=== PATIENT | male | born 1990 | race Caucasian/White ===

== ENCOUNTER 2022-09-22 07:46 | Emergency (ER) | payer OTHER ==
[~2022-09-22] VITALS: Ht 172.7 cm; Wt 90.7 kg
--- NOTE | 2022-09-22 07:53 | NUR ---
Contacted supervisory investigative specialist Mayra for 1:1 sitter for patient. Stated she did not have anyone available at this time.
--- NOTE | 2022-09-22 08:00 | NUR ---
Pt placed on 5150 Hold by [employer], pt is in room 3, [employer] and hospital security at bedside at this time.
--- NOTE | 2022-09-22 08:15 | NUR ---
[employer] left, security to stay at bedside for 1:1 observation until sittier is provided (nursing supervisor histology aware).
[2022-09-22 08:22] LABS: MEAN CORPUSCULAR HEMOGLOBIN 32.2 uug (23.8-33.4); MEAN CORPUSCULAR VOLUME 94.2 fL (73.0-96.2); PLATELET COUNT (AUTO) 268 K/uL (152-348)
--- NOTE | 2022-09-22 08:30 | NUR ---
SW consult was requested for a patient in the emergency room for substance abuse and mental health resources. Patient is a 32-year-old male who was brought in on a police 5150 for suicidal ideation. Patient is alert and oriented X4. Patient presents with depressed mood and congruent affect. Patient states he does not have a primary books salesperson. Patient states that his mother, Jewels ([phone]) lives in [place] and they have a good relationship. Patient states that he is currently renting a room in a house in [facility]. Patient states he is unemployed and receiving disability. Patient states he has a history of depression, anxiety and schizophrenia. Patient states he had a therapist and psychiatrist, but he stopped going to see them and stopped taking his medication a week ago. SW called and faxed the patients clinical information to [facility], [facility], [facility], [facility], [facility], [facility], and [facility]. SW will continue to follow up.
[2022-09-22 08:55] LABS: ALANINE AMINOTRANSFERASE 34 U/L (16-63); ALKALINE PHOSPHATASE 82 U/L (50-136); ASPARTATE AMINOTRANSFERASE 22 U/L (15-37); BILIRUBIN,DIRECT 0.2 mg/dL (0.0-0.2); BILIRUBIN,TOTAL 0.5 mg/dL (0.2-1.0); CARBON DIOXIDE 31 mmol/L (21-32); CHLORIDE 104 mmol/L (98-107); CREATININE 1.1 mg/dL (0.6-1.3); ETHANOL < 3 MG/DL (0-0); GLUCOSE 113 mg/dL (74-106); POTASSIUM 3.8 mmol/L (3.5-5.1); TOTAL PROTEIN, SERUM 7.1 g/dL (6.4-8.2); UREA NITROGEN, BLOOD 12 mg/dL (7-18)
[2022-09-22 09:15] LABS: *BILIRUBIN,URIN NEGATIVE (NEGATIVE); *BLOOD, URINE NEGATIVE (NEGATIVE); *CLARITY,URINE CLEAR (CLEAR); *COLOR,URINE LIGHT YELLOW (YELLOW); *KETONES,URINE NEGATIVE (NEGATIVE); *UROBILINOGEN,URINE 0.2 E.U./dl (NORMAL); LEUKOCYTE ESTERASE ,URINE NEGATIVE (NEGATIVE); NITRITE, URINE NEGATIVE (NEGATIVE); PH,URINE 5.5 (5.0-8.0); UGLUCOSE NEGATIVE (NEGATIVE)
[2022-09-22 09:33] LABS: *AMPHETAMINE, URINE NEGATIVE (NEGATIVE); *CANNABINOID, URINE POSITIVE (NEGATIVE); *COCCAINE, URINE POSITIVE (NEGATIVE); *OPIATE, URINE NEGATIVE (NEGATIVE); *PHENCYCLIDINE SCREEN,URINE NEGATIVE (NEGATIVE)
[2022-09-22 09:43] LABS: THYROID STIMULATING HORMONE 1.564 mIU/mL (0.358-3.740)
[2022-09-22 09:55] LABS: ACETAMINOPHEN < 2.0 ug/mL (10-30)
--- NOTE | 2022-09-22 10:39 | NUR ---
Spoke with [facility] who stated the patient's admission has been approved, and currently waiting for a bed for the patient.
--- NOTE | 2022-09-22 10:41 | NUR ---
Spoke with Elizabeth from [facility]. Patient will go to [place] [address] and will receive a call back around 1230 with the bed information.
--- NOTE | 2022-09-22 11:15 | NUR ---
Received telephone call from Elizabeth who stated pt has been accepted for admission at [facility]. Unit [address], Room 1617C Call [phone] Castro accepting Facility address: [id number] [address] [facility], [place] [address]
--- NOTE | 2022-09-22 11:30 | NUR ---
Called [facility] for transport, ETA 1300.
--- NOTE | 2022-09-22 12:48 | NUR ---
Gave report to ANN Beckman at [facility].
--- NOTE | 2022-09-22 13:20 | NUR ---
Patient picked up by [facility].
== END 2022-09-22 13:20 ==
LOC: ER 07:46
DX: R45.851 Suicidal ideations (principal); F20.9 Schizophrenia, unspecified; F31.9 Bipolar disorder, unspecified; F10.90 Alcohol use, unspecified, uncomplicated; Z20.822 Contact with and (suspected) exposure to COVID-19
CPT/HCPCS: 36415; 84443; 85025; A4663; G0480